=== PATIENT | female | born 1950 | race Caucasian/White ===

== ENCOUNTER → 2018-02-17 | Outpatient (CLI) | payer MEDICARE ==
[2014-07-03 15:26] VITALS: BMI 33.6
[~2018-02-17] MED LIST: ADV100/50 INH; ASCO-182 PO; CALC500T6 PO; CET10 PO; CETI-176 PO; CHOL100058 PO; CLI150 PO; DOCU-202 PO; FLU20 PO; FLUT1DIS28 IH; HYDR2TAB4 PO; LEVO50TA80 PO; LORA10TA PO; OMEG-11 PO; ONDA4TAB PO; RED600CA15 PO; TOLT4CAP13 PO; UBID100C48 PO; VERA240C12 PO; VERA80TA25 PO; [UNRECOGNIZED DRUG - CODE] PO; [UNRECOGNIZED DRUG - CODE] PO; [UNRECOGNIZED DRUG - OTHER]
--- NOTE | 2018-02-17 09:05 | EKG ---
[place] [facility] [place] CAESAR SPENCER : [id number] MR: [id number] V: [id number] EXAM DATE: ORDERING PHYSICIAN: HELLEN FAYE TECHNOLOGIST: PRATIMA Test Reason : PREOP-HERNIA Blood Pressure : / mmHG Vent. Rate : 051 BPM Atrial Rate : 051 BPM P-R Int : 176 ms QRS Dur : 092 ms QT Int : 472 ms P-R-T Axes : 036 029 043 degrees QTc Int : 435 ms Sinus bradycardia Otherwise normal ECG When compared with ECG of 03-OCT-2014 14:20, No significant change was found Confirmed by MARTA HERRMANN ([id number]) on 02/17/2018 2:42:29 PM Referred By: Confirmed By:MARTA HERRMANN
[2018-02-17 09:09] LABS: PLATELET COUNT, AUTOMATED 254 K/uL (150-450)
--- NOTE | 2018-02-17 10:02 | RADIOLOGY IMAGING REPORT ---
FACILITY: [facility] - [place] PATIENT NAME: Cecilia Dotson : 1950 MR: [id number] V: [id number] EXAM DATE: ORDERING PHYSICIAN: HELLEN FAYE TECHNOLOGIST: Location: [facility] - [place], [place] Patient: Cecilia Dotson : 1950 Visit/Account:[id number] Date of Sevice: 02/17/2018 Exam type: CHEST PA AND LAT History: Preop, shortness of breath,, nonsmoker, asthma Comparison: July 04, 2014. Findings: There is an ovoid nodular area of increased density projecting over the left upper lung field that ap pears stable. There is no evidence of focal infiltrates, pleural effusions or pulmonary edema. Ther e is localized eventration of left hemidiaphragm. The cardiac silhouette is mildly enlarged but unch anged. There are mild spondylotic changes of the thoracic spine. Surgical clips are present right u pper quadrant abdomen. IMPRESSION: 1. No acute cardiopulmonary process is seen Report Dictated By: Coretta Craig MD at 02/17/2018 9:55 AM Report E-Signed By: Coretta Craig MD at 02/17/2018 9:58 AM WSN:[id number]
== END ==
LOC: RAD 08:27
PROVIDERS: ATTEND Nurse Practitioner Psychiatric/Mental Health
DX: Z01.818 Encounter for other preprocedural examination (principal); I51.7 Cardiomegaly; M47.894 Other spondylosis, thoracic region; R00.1 Bradycardia, unspecified; R91.8 Other nonspecific abnormal finding of lung field; I10 Essential (primary) hypertension; R06.02 Shortness of breath
CPT/HCPCS: 36415; 71046; 82040; 82247; 82310; 82374; 82435; 82565; 82947; 84075; 84132; 84155; 84295; 84450; 84460; 84520; 85025; 93005

== ENCOUNTER 2018-03-03 00:29 | Day surgery (SDC) | payer MEDICARE ==
[2014-07-03 15:26] VITALS: Ht 154.9 cm; Wt 82.6 kg
[2018-03-03] VITALS (8 sets, daily range): BP systolic 136–148; BP diastolic 72–90
[~2018-03-03] VITALS: Ht 154.9 cm; Wt 82.6 kg
[~2018-03-03 00:29] MED LIST changes: +ALB18R INH
[2018-03-03] MEDS ORDERED: ROPIVACAINE 0.5% 20 ML VIAL ONE (07:09)
[2018-03-03] MEDS ORDERED: BACITRACIN OINT 15 GM TUBE TP ONE (07:10)
[2018-03-03] MEDS ORDERED: LIDOCAINE MPF 1% 5 ML VIAL ONE (07:33)
[2018-03-03] MEDS ORDERED: PROPOFOL EMUL(*) 10MG/ML 20 ML 40 ML ONE (07:33)
[2018-03-03] MEDS ORDERED: ROCURONIUM BROM 10 MG/ML 10 ML ONE (07:33)
[2018-03-03] MEDS ORDERED: SUCCINYLCHOL CHL 200MG/10ML VL ONE (07:33)
[2018-03-03] MEDS ORDERED: DEXAMETHASONE SOD PHOS 10MG/ML ONE (07:33)
[2018-03-03] MEDS ORDERED: ONDANSETRON 4 MG/2 ML VIAL ONE (07:33)
[2018-03-03] MEDS ORDERED: fentaNYL CITR 100 MCG/2 ML AMP ONE ×2 (07:51→09:31)
[2018-03-03] MEDS ORDERED: NS 0.9% IRRIGATION 1000ML PLCT IR ONE (08:06)
[2018-03-03] MEDS ORDERED: GLYCOPYRROLATE 0.2 MG/ML SDV ONE (08:13)
[2018-03-03] MEDS ORDERED: OXYC5TAB38 PO (09:48)
[2018-03-03] MEDS ORDERED: DOCU-416 PO (09:48)
--- NOTE | 2018-03-03 09:51 | Short(Outpt) Discharge Summary ---
Discharge Summary Reason for Hosp/Final Diag: (1) Umbilical hernia Status: Chronic Hospital Course & Plan: UH repair with mesh completed without problems. Departure Discharge to: Home, Self Care Discharge Instructions Home Meds Active Scripts Docusate Sodium (COLACE) 100 Mg Capsule, 1 CAP PO BID, #30 CAP 0 Refills TAKE WITH A FULL GLASS OF WATER Prov:NATHALIE RODRIGUEZ MD 03/03/18 Oxycodone Hcl (OXYCODONE HCL) 5 Mg Tablet, 1-2 TAB PO Q4H Y for PAIN, #30 TAB 0 Refills Prov:NATHALIE RODRIGUEZ MD 03/03/18 Reported Medications Albuterol Sulfate (VENTOLIN HFA) 18 Gm Inh, 2 PUFF INH Q4-6H Y for ALLERGY SYMPTOMS, INH 02/22/18 Red Yeast Rice (RED YEAST RICE) 600 Mg Capsule, 600 MG PO QDAY, CAPSULE 02/15/18 Ubidecarenone (COQ-10) 100 Mg Capsule, 100 MG PO QDAY, CAPSULE 02/15/18 [place]-3 Fatty Acids/Fish Oil (FISH OIL 1,000 MG CAPSULE) 1 Each Capsule, 1 EACH PO QDAY, CAPSULE 02/15/18 Cholecalciferol (Vitamin D3) (VITAMIN D) 1,000 Unit Capsule, 1000 UNIT PO QDAY, CAPSULE 02/15/18 Ascorbic Acid (VITAMIN C) 500 Mg Tablet, 500 MG PO QDAY, TAB 02/15/18 [Gilman Bark] Unknown Strength No Conflict Check, QDAY 02/15/18 Calcium Carbonate (CALCIUM) Unknown Strength Tablet, PO QDAY 02/15/18 Cetirizine Hcl (ZYRTEC) 10 Mg Tablet, 10 MG PO QDAY, TAB 02/15/18 Verapamil HCl (Verapamil Sr) 240 Mg Cap24h.pel, 1 TAB PO BID 02/15/18 Fluticasone/Salmeterol (ADVAIR 250-50 DISKUS) 1 Each Disk.w.dev, 1 EACH IH BID 02/15/18 Fenofibrate (LOFIBRA) 160 Mg Tablet, 160 MG PO DAILY 07/01/14 Levothyroxine Sodium (SYNTHROID) 50 Mcg Tablet, 1 TAB PO QDAY 11/25/13 Follow up Referrals: General Surgery - 03/21/18 @ Surgery, General with Nathalie Rodriguez Md You have a follow up appointment scheduled with Dr. Rodriguez on 03/21/18, at 11:30am. Diet: Regular Activity: No Heavy Lifting, No Exertion Special Instructions: You may remove the white surgical dressing and the packing from your belly button on 03/05/18, then you can shower. After showering, leave the incision open to air but leave the steristrips in place until they fall off on their own. Do not perform any activities that involve straining or lifting more than 10 pounds for 6 weeks after surgery. Starting on April 15, you can start transitioning back to regular activity. Problem Qualifiers (1) Umbilical hernia: Obstruction and gangrene presence: without obstruction or gangrene Qualified Codes: K42.9 - Umbilical hernia without obstruction or gangrene NATHALIE RODRIGUEZ MD Mar 03, 2018 09:51
--- NOTE | 2018-03-03 09:59 | Post Operative Progress Note ---
Post Operative Progress Note Date: Mar 03, 2018 Time: 09:51 Surgeon: Alex Dictation number: [id number] Anesthesia: GETA by Dr. Flower Pre-Op Diagnosis: UH Post-Op Diagnosis: JOSEPHINE Findings: C/W dx, 4cm fascial defect Procedure(s): UH repair with mesh Specimen Removed:(May be N/A): None Complications: None Fluids: See anesthesia record for details Estimated Blood Loss: Minimal Date OP Note Dictated: Mar 03, 2018 Time OP Note Dictated: 09:52 NATHALIE RODRIGUEZ MD Mar 03, 2018 09:59
[2018-03-03] MEDS ORDERED: LIDOCAINE/SOD BICARB 8.4% SYR ID ONE (11:10)
[2018-03-03] MEDS ORDERED: MIDAZOLAM 2 MG/2 ML VIAL IVP PRN (11:10)
[2018-03-03] MEDS ORDERED: VANCOMYCIN 1 GM ADDVIAL 1 GM in NS(*) 0.9% 250 ML ADDVAN BAG 250 ML IVPB ONE (11:10)
[2018-03-03] MEDS ORDERED: FAMOTIDINE 20 MG TAB PO ONE (11:10)
[2018-03-03] MEDS ORDERED: NORMOSOL R SOLN(*) 1000 ML BAG 1,000 ML IV PRN (11:10)
[2018-03-03] MEDS ORDERED: oxyCODONE HCL 5 MG CAP ONE ×2 (11:20→11:58)
[2018-03-03] MEDS ORDERED: NEOMYCIN/POLYMYX/BACITR OINT 1 PACKET TP ONE (13:11)
--- NOTE | 2018-03-03 19:22 | OPERATIVE REPORT 1 ---
EVENT DATE: March 03, 2018 SURGEON: Adarsh Johnson MD ANESTHESIOLOGIST: Keshav Flower MD ANESTHESIA: General endotracheal anesthesia. PREOPERATIVE DIAGNOSIS Umbilical hernia. POSTOPERATIVE DIAGNOSIS Umbilical hernia. PROCEDURE PERFORMED Umbilical hernia repair with mesh. COMPLICATIONS None. CONDITION Stable. BLOOD LOSS Minimal. FINDINGS Patient had a 4 cm fascial defect at her umbilicus and going cephalad to her umbilicus. INDICATIONS This is a 67-year-old female who presented to my office with a bulge just above her umbilicus in the superior umbilical rim. It was pretty significant, and there was some discoloration of the overlying skin. Her exam was consistent with an umbilical hernia. She was requesting to have it repaired. DESCRIPTION OF PROCEDURE The patient was brought to the operating room and placed supine on the operating table. General endotracheal anesthesia was administered, and her abdomen was prepped and draped in a sterile fashion. Timeout was completed. I injected the supraumbilical skin with 0.5% ropivacaine plain. I made a curvilinear frowning face type in the superior umbilical skin and dissected down through the dermis and then the subcutaneous tissues. Immediately under the skin was the hernia sac. I had to separate this away from the overlying dermis and clean off the sac all the way down to the fascia. It was a decent sized hernia sac. Once I had the sac completely cleaned off, and I could identify the fascia edges, I created space in the preperitoneal space, but ended having to get into the rectus sheath by dividing the posterior rectus sheath. Once I had this done, I excised the excess sac, and I had a nice preperitoneal and interrectal sheath space created for about 5 cm on all sides. I closed the posterior sheath and peritoneum with running 3-0 Vicryl sutures. I then placed an 8 cm round piece of omega-3 C-Qur type of mesh into this space with the smooth side down and secured it to the fascia with interrupted 3- 0 Prolene sutures. I then closed the overlying fascia in a transverse orientation with interrupted 0 Ethibond sutures. I used two full packs which would be 16 sutures for a nice, secure, evenly distributed, low-pressure closure. I irrigated and dried the wound at each step of the closure and then I tacked the umbilicus down to the fascia with 3-0 Vicryl single suture and then closed the skin with 4-0 Monocryl running subcuticular suture. Skin was cleaned and dried, and Steri-Strips were applied, followed by a bacitracin- saturated 2 x 2 gauze in the bellybutton, and then covered all of this with the [place] sterile surgical dressing. The patient was awakened, extubated in the operating room, and transported to the recovery room in stable condition having tolerated the procedure without any apparent problems. ANTONIO
== END 2018-03-03 10:32 | disposition home or self-care (01) ==
LOC: OR 00:29
PROVIDERS: ATTEND Surgery
DX: K42.9 Umbilical hernia without obstruction or gangrene (principal)
CPT/HCPCS: 49585; A9270; J0330; J1100; J2001; J2405; J2704; J2795; J3010; J3370; J3490; J7050